=== PATIENT | female | born 1935 | race Caucasian/White ===

== ENCOUNTER 2016-03-26 00:56 | Day surgery (SDC) | payer MEDICARE, OTHER ==
[~2016-03-26] VITALS: Ht 160 cm; Wt 77.5 kg
[2016-03-26] VITALS (9 sets, daily range): BP systolic 88–119; BP diastolic 51–80; PULSE 62–98; RESP 14–22; O2SAT 90–99
[~2016-03-26 00:56] MED LIST: ASC500 PO; CALC1CAP5 PO; IRON45TA2 PO; MAGN100T3 PO; MULT-64 PO; OMEG1CAP25 PO; SYN75 PO; TYL325 PO; VIT400TA2 PO; [UNRECOGNIZED DRUG - CODE] PO
[2016-03-26 10:32] LABS: BASOPHILS % (AUTO) 0.5 % (0-3); EOSINOPHILS % (AUTO) 3.2 % (0-5); Mean Corpuscular Hemoglobin 29.5 pg (27.0-35.0); NEUTROPHILS % (AUTO) 56.1 % (40-74); Platelet Count 153 bil/L (150-400)
[2016-03-26] MEDS ORDERED: 0.9% Sodium Chloride 500 ML ONE (10:36)
[2016-03-26] MEDS ORDERED: Methohexital 10 mg/mL 50 mL Inj ONE (10:38)
[2016-03-26] MEDS ORDERED: Atropine 1 mg/10 mL (Code) Syringe ONE (10:39)
[2016-03-26 10:50] LABS: INR 1.88 ratio
--- NOTE | 2016-03-26 11:34 | OP ---
[address] [address] OPERATIVE REPORT PATIENT: JHONNY ETIENNE : 1935 MR#: [id number] ADMIT: 03/26/2016 JOB ID: [id number] DATE OF SURGERY: 03/26/2016 SURGEON: Zee Montelongo MD PREOPERATIVE DIAGNOSIS(ES): Atrial fibrillation. POSTOPERATIVE DIAGNOSIS(ES): Atrial fibrillation. PATIENT PROFILE: The patient is a 80-year-old lady with atrial fibrillation since October 2015. PROCEDURE: Synchronous cardioversion. COMPLICATIONS: None. METHOD: Synchronous cardioversion was performed in the [facility] with IV anesthesia with 1 mg of Versed and 40 mg of Brevital. It was delivered with biphasic 120 joules. The atrial fibrillation was successfully converted to normal sinus rhythm. MTDD
[2016-03-26] MEDS ORDERED: TIMO5DRO26 OP (11:39)
[2016-03-26] MEDS ORDERED: WARF5TAB7 PO (11:39)
[2016-03-26] MEDS ORDERED: LOVA20TA PO (11:39)
[2016-03-26] MEDS ORDERED: LATA2.5D6 OP (11:39)
[2016-03-26] MEDS ORDERED: TERA10CA5 PO (11:39)
[2016-03-26] MEDS ORDERED: METO25TA99 PO (11:39)
[2016-03-26] MEDS ORDERED: WARF1TAB6 PO (11:39)
[2016-03-26] MEDS ORDERED: LEVO75TA4 PO (11:44)
--- NOTE | 2016-03-26 12:38 | NUR ---
[facility] Patient admitted to [facility] bed 1 at 1000 for cardioversion. at bedside. Patient denies pain, SOB but does C/O feeling tired. FS INR 1.9. MD notified. Heart monitor shows AFIb. HL placed and labs obtained. Consent signed and questions answered by MD. History and medications reviewed. Patient and poor historians. Pre-procedure teaching done and questions answered. Procedure complete 120 J cardioversion. Patient convert to sinus rhythm. Recovered post cardioversion in [facility]. Continues to deny pain. Pre discharge patient able to take PO, ambulated and emptied urinary bag. Post procedure instructions reviewed with patient and , written information given and question answered. Home with at 1230.
== END 2016-03-26 23:59 | disposition home or self-care (01) ==
LOC: SOUO 00:56
PROVIDERS: ATTEND Internal Medicine Interventional Cardiology
DX: I48.2 Chronic atrial fibrillation (principal); G47.33 Obstructive sleep apnea (adult) (pediatric); I10 Essential (primary) hypertension; Z79.01 Long term (current) use of anticoagulants
CPT/HCPCS: 36415; 80048; 85025; 85610; 92960; 93005; 99151; J2250; J7040